=== PATIENT | female | born 1950 | race Caucasian/White ===

== ENCOUNTER → 2017-05-19 | Outpatient (CLI) | payer OTHER ==
--- NOTE | 2017-05-20 08:23 | MRI ---
Study: MRI of the Left Knee. Indication: OSTEOARTHRITIS OF KNEE Technique: Multiplanar, multi sequence MRI of the left knee was obtained without intravenous contrast. Comparison: None Findings: Mild mucoid degeneration ACL without acute tear. PCL intact. Both the MCL and FCL are slightly thickened and lax with mild increased internal PD signal. In addition, there is mild thickening of the distal IT band. These findings can be seen in the setting of the osteoarthritic knee. No acute tear defect of the medial or lateral collateral structures. Irregular high grade oblique undersurface and radial free edge tearing throughout the posterior horn/root and body medial meniscus with the body extruded by 4 mm. Free edge fraying throughout the lateral meniscus. Grade 4 chondral loss of the majority of the weightbearing portions medial compartment with mild cortical remodeling. Areas of grade 2 and 3 chondral thinning and surface irregularity throughout the lateral compartment noted and most pronounced at the medial weightbearing margin lateral tibial plateau. Tendinosis quadriceps tendon insertion and patellar tendon origin without tear. Patella normally located. Subtle areas of grade 1 and 2 chondral thinning throughout the patellofemoral compartment. Moderate size knee effusion with scattered synovitis/debris. No acute fracture. Impression: Complex multidirectional tearing medial meniscus. Free edge fraying throughout the lateral meniscus. 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 Moderate size knee effusion with scattered synovitis/debris. Mild mucoid degeneration ACL. Additional findings as above. Electronically signed by: Jeyson Bautista MD 05/20/2017 8:22 AM [employer]
== END | disposition home or self-care (01) ==
LOC: MRI 11:04
PROVIDERS: ATTEND Orthopaedic Surgery
DX: M25.462 Effusion, left knee (principal); M65.862 Other synovitis and tenosynovitis, left lower leg

== ENCOUNTER 2017-06-07 05:59 | Day surgery (SDC) | payer MEDICARE, BC ==
--- NOTE | 2017-06-02 12:29 | RAD ---
EXAM DESCRIPTION: Chest,2 Views CLINICAL HISTORY: pre op COMPARISON: None FINDINGS: Two views of the thorax. No consolidation, effusion or pneumothorax is present. Heart and mediastinum within normal limits. Osseous structures are normal. IMPRESSION: Normal chest Electronically signed by: Garrett Vera MD 06/02/2017 12:28 PM [employer]
[~2017-06-07 05:59] MED LIST: LACTATED RINGERS 1,000 ML ONE; SODIUM CHL 0.9% 100ML MINI-BAG 100 ML IVPB ONE; ceFAZolin SODIUM 1 GM VIAL ONE
[2017-06-07] MEDS ORDERED: ceFAZolin SODIUM 1 GM VIAL ONE ×2 (06:44→07:00)
[2017-06-07] MEDS ORDERED: MIDAZOLAM INJ 2 MG/2 ML VIAL ONE (06:53)
[2017-06-07] MEDS ORDERED: fentaNYL CITRATE INJ 50 MCG/ML AMP ONE (06:54)
[2017-06-07] MEDS ORDERED: VANCOMYCIN HCL INJ 1,000 MG VIAL IVPB ONE (07:00)
[2017-06-07] MEDS: BUPIVACAINE 0.25% W/EPI 50 ML VIAL INJ ONE ×2 (07:15→08:04)
[2017-06-07] MEDS ORDERED: HYDROcodone 5MG/APAP 325MG 1 EA TAB ONE (09:07)
[2017-06-07] MEDS ORDERED: METOCLOPRAMIDE HCL INJ 10 MG/2 ML VIAL IV ONE (10:00)
[2017-06-07] MEDS ORDERED: DEXAMETHASONE INJ 10 MG/ML VIAL IV ONE (10:00)
[2017-06-07] MEDS ORDERED: raNITIdine HCL INJ 25 MG/ML VIAL IV ONE (10:00)
[2017-06-07] MEDS ORDERED: ePHEDrine SULF 50 MG/ML IV ONE (10:00)
[2017-06-07] MEDS ORDERED: PROPOFOL 200 MG/20 ML VIAL IV ONE (10:00)
[2017-06-07] MEDS ORDERED: KETOROLAC TROMETHAMINE INJ 30 MG/ML VIAL IV ONE (10:00)
[2017-06-07] MEDS ORDERED: LIDOCAINE 1% 10 ML VIAL INJ ONE (10:00)
[2017-06-07 11:11] VITALS: BP 166/69; TEMP 97; O2SAT 96
--- NOTE | 2017-06-10 09:25 | OP ---
DATE OF PROCEDURE: 06/07/18 PREOPERATIVE DIAGNOSIS: 1. Knee pain. POSTOPERATIVE DIAGNOSIS: 1. Advanced arthritis of the medial compartment. 2. Radial tearing of the medial meniscus. 3. Chondromalacia of the lateral compartment. PROCEDURE: 1. Chondroplasty and debridement. 2. Partial meniscectomy. SURGEON: Patrick Napoles MD. [facility] HOSPITALIST: Mike Molina CST, -C. ANESTHESIA: General. COMPLICATIONS: None. FINDINGS: 1. Large radial ear of the medial meniscus involving the posterior aspect of the body. 2. Large flap tear involving the anterior horn of the medial meniscus. 3. Normal anterior cruciate ligament and normal posterior cruciate ligament. 4. Chondromalacia of the lateral compartment. 5. Normal lateral gutter. 6. Normal suprapatellar pouch. 7. Normal medial gutter. INDICATION: Ms. Stanford has a long history of knee pain and has been unable to get relief with conservative measures. Because of that, she has requested operative intervention. After discussing the risks, benefits and alternatives to that, the patient has given informed consent for that. PROCEDURE: The patient was brought to the Operating Room and placed in supine position. General anesthesia was induced and the patient's leg was sterilely prepped and draped. Following prepping and draping, standard anteromedial and anterolateral portals were established. Diagnostic arthroscopy was carried out with the above findings. Attention was then focused on the medial compartment. Using a 3.5 mm full radius shaver, the cartilaginous surface were debrided to a stable base. Attention was focused on the meniscus and partial meniscectomy was performed. The meniscus was fully probed to ensure the remaining meniscal remnant stable. The knee was thoroughly irrigated and drained. Following draining of the knee, the wounds were closed with Nylon suture. Sterile dressings were placed. The patient was awoken from anesthesia and taken to Recovery. POSTOPERATIVE INSTRUCTIONS: The patient will be weightbearing as tolerated on postoperative day 1. [facility][id number] [facility]
== END 2017-06-07 10:30 | disposition home or self-care (01) ==
LOC: AMB 05:59
PROVIDERS: ATTEND Orthopaedic Surgery
DX: S83.242A Other tear of medial meniscus, current injury, left knee, initial encounter (principal); M13.862 Other specified arthritis, left knee; M94.262 Chondromalacia, left knee; I10 Essential (primary) hypertension; F41.9 Anxiety disorder, unspecified; G47.00 Insomnia, unspecified; E66.9 Obesity, unspecified; E78.5 Hyperlipidemia, unspecified; R73.9 Hyperglycemia, unspecified; Z68.32 Body mass index [BMI] 32.0-32.9, adult; Z79.82 Long term (current) use of aspirin; Z79.899 Other long term (current) drug therapy
CPT/HCPCS: 01400; 29881; 36415; 71046; 80048; 81001; 85025; 87070; 93005; J0690; J1100; J1885; J2250; J2765; J2780; J3010; J3370; J3490; J7050; J7120